=== PATIENT | male | born 1945 | race Caucasian/White ===

== ENCOUNTER 2021-05-16 06:01 | Outpatient (CLI) | payer MEDICARE, BC, SELFPAY ==
--- NOTE | 2021-05-16 07:06 | ECHOD_ITS ---
Reason For Study: AFIB/FLUTTER Procedure This was a 2D Doppler, Color Flow transthoracic echocardiogram. The study was technically difficult. Exam performed in department. Left Ventricle Normal LV size. Left ventricular systolic function is normal. The estimated ejection fraction is 65 %. Diastolic function is indeterminate. No regional wall motion abnormalities noted. Right Ventricle Normal RV size. Normal systolic function. Atria Normal left atrium. Normal right atrium. No doppler evidence for ASD. Mitral Valve There is no mitral annular calcification. Mild diffuse mitral valve thickening. Mild mitral valve prolapse. Trivial mitral valve insufficiency. Tricuspid Valve Normal tricuspid valve. Trivial tricuspid valve insufficiency. Right ventricular systolic pressure estimated to be 35 mmHg. Aortic Valve Trisinus/trileaflet aortic valve. Mild diffuse aortic valve thickening. Mild focal aortic valve calcification. Aortic sclerosis, no stenosis. Trivial aortic valve insufficiency. Pulmonic Valve The pulmonic valve is not well visualized. Mild (1+) pulmonic valve insufficiency. Great Vessels Normal sized aortic root. Pericardium/Pleural No pericardial effusion. MMode/2D Measurements & Calculations LVIDd: 4.1 cm IVSd: 1.1 cm Ao root diam: 3.1 cm LVIDs: 2.6 cm LVPWd: 1.1 cm RVDd: 3.3 cm FS: 38.0 % LAV(MOD-bp): 63.3 ml LA A4 area: 20.1 cm2 LA dimension(2D): 4.0 cm LAV(MOD-bp) Indexed: 32.4 ml/m2 LAV(MOD-sp2): 68.0 ml LAV(MOD-sp4): 58.0 ml RA A4 area: 20.3 cm2 Time Measurements MV dec time: 0.16 sec Doppler Measurements & Calculations MV E max tripp: 81.7 cm/sec Lat Peak E' Tripp: 6.8 cm/sec Med Peak E' Tripp: 6.8 cm/sec MV A max tripp: 70.8 cm/sec E/E' lat: 12.1 E/E' med: 11.9 MV E/A: 1.2 Ao V2 max: 128.3 cm/sec LV V1 max: 101.6 cm/sec PA V2 max: 188.6 cm/sec Ao max P.6 mmHg LV V1 max P.1 mmHg TR max tripp: 283.2 cm/sec TR max P.1 mmHg ECHO/Echo Complete Interpretation Summary The study was technically difficult. Left ventricular systolic function is normal. The estimated ejection fraction is 65 %. Mild diffuse mitral valve thickening. Mild mitral valve prolapse. Trivial mitral valve insufficiency. Trivial tricuspid valve insufficiency. Aortic sclerosis, no stenosis. Trivial aortic valve insufficiency. Mild (1+) pulmonic valve insufficiency. Right ventricular systolic pressure estimated to be 35 mmHg. Diastolic function is indeterminate. Ordering Physician: Alexander Conte Referring Physician: Nathaniel Escalante Performed By: Rhona Dominguez, HAILE, RVT
--- NOTE | 2021-05-16 19:29 | STRESSREP_ITS ---
Stress Test Report Date: 05-16-2021 Procedure: Exercise tolerance test/imaging study Indications: Fatigue, atrial flutter, status post EPS/RFA Consent: Per the patient Procedure: The patient exercised on a Charlie protocol for 9 minutes completing Stage III achieving a peak heart rate of 148 bpm (102% predicted maximal heart rate) with a peak blood pressure 212/82 mmHg and a peak MET capacity of 10 METs. The baseline ECG demonstrated sinus rhythm. The peak exercise ECG demonstrated approximately 0.5 to 1.[address] segment depression in leads II, III, aVF, and approximately [address] segment depression in lead V4 through V6 with subsequent resolution towards baseline in recovery. There was a rare PVC during exercise. The functional capacity was considered good. There was no complaint of chest discomfort during exercise or recovery. The examination was discontinued secondary to dyspnea. Impression: 1. Technically adequate (percent predicted maximal heart rate greater than 85%) exercise tolerance test 2. Peak exercise ECG with approximately 0.5 to 1.[address] segment depression in leads II, 3, aVF, and approximately [address] segment depression in leads V4 through V6 with subsequent resolution towards baseline in recovery 3. There were no cardiac dysrhythmias pretest, during exercise, or recovery 4. Nuclear images pending Myocardial perfusion imaging study: Technique: The patient was injected with 11.1 mCi of technetium 99m Cardiolite and subsequently rest SPECT Cardiolite nuclear imaging was obtained in the horizontal long, vertical long, and short axis views. The patient exercised on a Charlie protocol for 9 minutes completing Stage III achieving a peak heart rate of 148 bpm (102% predicted maximal heart rate) with a peak blood pressure 212/82 mmHg and a peak MET capacity of 10 METs. The patient was injected with 33.3 mCi of technetium 99m Cardiolite and subsequently stress SPECT Cardiolite nuclear imaging was obtained in the horizontal long, vertical long, and short axis views. A gated Cardiolite study at peak stress was obtained. Interpretation: Rest and stress SPECT Cardiolite nuclear imaging status post realignment, normalization, and attenuation correction, demonstrates the appearance of relative uniform tracer uptake and myocardial perfusion appearing within normal limits. There is end systolic thickening and brightening. The gated Cardiolite study demonstrates myocardial thickening and inward wall motion. The reported LVEF is 64%. Impression: 1. Rest and stress SPECT Cardiolite nuclear imaging demonstrate relative uniform tracer uptake and myocardial perfusion appearing within normal limits. 2. The gated Cardiolite study reports an LVEF of 64%. This note was generated with [email or web address] software. It may contain incorrect words, spelling, and punctuation that were not noted in checking the note before signing.
== END 2021-05-16 23:59 | disposition home or self-care (01) ==
LOC: CVS 06:04
PROVIDERS: PCP Family Medicine Geriatric Medicine; Referring Provider Internal Medicine Cardiovascular Disease; Visit Provider Internal Medicine Cardiovascular Disease
DX: I48.92 Unspecified atrial flutter (principal); R53.83 Other fatigue; E78.00 Pure hypercholesterolemia, unspecified; I10 Essential (primary) hypertension; Z79.899 Other long term (current) drug therapy; R06.00 Dyspnea, unspecified
CPT/HCPCS: 78452; 93017; 93306; A9500; A4216

== ENCOUNTER → 2021-10-31 | Outpatient (CLI) | payer MEDICARE, BC, SELFPAY ==
[2021-10-31 12:40] LABS: Erythrocyte Sedimentation Rate 6 mm/hr (0-20)
[2021-10-31 12:46] LABS: Absolute Lymphocyte Count 1.34 X10^3/uL (0.83-4.51); Absolute Neutrophil Count 4.9 X10^3/uL (2.0-7.7); Basophil# 0.04 X10^3/uL; Basophil% 0.6 % (0-1); Eosinophil# 0.18 X10^3/uL; Eosinophils% 2.5 % (0-5); Hematocrit 51.1 % (40-54); Hemoglobin 16.5 g/dL (13.0-16.5); Lymphocyte # 1.34 X10^3/ul (0.83-4.51); Lymphocyte % 18.9 % (19-41); Mean Corp Hgb Conc 32.3 g/dL (32-36); Mean Corpuscular Hgb 28.3 pg (27.0-32.0); Mean Corpuscular Volume 87.7 fL (80-94); Mean Platelet Vol. 10.6 fl (6.2-12.0); Monocyte# 0.57 X10^3/uL; NRBC Flagged by Analyzer 0 % (0-5); Neutrophil # 4.94 X10^3/uL (2.7-7.7); Neutrophil % 69.6 % (47-70); Platelet Count 124 K/mm3 (150-450); RBC Distribution Width CV 14.1 % (11.6-14.6); RBC Distribution Width SD 44.9 fl (35.1-43.9); Red Blood Count 5.83 M/mm3 (4.6-6.2); White Blood Count 7.1 K/mm3 (4.4-11.0)
[2021-10-31 13:05] LABS: AST(SGOT) 29 U/L (15-37); Alanine Aminotransfer ALT/SGPT 39 U/L (16-61); Albumin, Serum 3.6 g/dL (3.2-5.0); Alkaline Phosphatase 62 U/L (45-117); Anion Gap 3 (5-15); BUN 23 mg/dL (7-18); Bilirubin, Direct 0.19 mg/dL (0.00-0.30); Chloride 108 mmol/L (98-107); Creatinine, Serum 1.02 mg/dL (0.70-1.30); EST Glomerular Filtration Rate 75 mL/min (>60); Est Glom Filt Rate - Afr Amer 91 mL/min (>60); Globulin 3.2 g/dL (2.2-4.2); Glucose 89 mg/dL (74-106); Potassium 4.7 mmol/L (3.5-5.1); Protein, Total 6.8 g/dL (6.4-8.2); Sodium Level 142 mmol/L (136-145)
[2021-11-03 17:29] LABS: C1 Esterase Inhibitor, Quant 28 mg/dL (21-39)
== END | disposition home or self-care (01) ==
LOC: LAB 11:48
PROVIDERS: PCP Family Medicine Geriatric Medicine; Referring Provider Nurse Practitioner; Visit Provider Nurse Practitioner
DX: T78.3XXD Angioneurotic edema, subsequent encounter (principal)
CPT/HCPCS: 36415; 80051; 80076; 82565; 82947; 84520; 84550; 85025; 85652; 86160

== ENCOUNTER → 2021-11-10 | Outpatient (CLI) | payer MEDICARE, BC, SELFPAY ==
[2021-11-10 08:57] LABS: AST(SGOT) 26 U/L (15-37); Alanine Aminotransfer ALT/SGPT 37 U/L (16-61); Albumin, Serum 3.6 g/dL (3.2-5.0); Alkaline Phosphatase 60 U/L (45-117); Bilirubin, Direct 0.15 mg/dL (0.00-0.30); Cholesterol 155 mg/dL (200); Globulin 3.1 g/dL (2.2-4.2); High Density Lipoprotein 42 mg/dL; Protein, Total 6.7 g/dL (6.4-8.2); Triglycerides 109 mg/dL; Very Low Density Lipoprotein 22 mg/dL (5-40)
== END | disposition home or self-care (01) ==
LOC: LAB 08:01
PROVIDERS: PCP Family Medicine Geriatric Medicine; Referring Provider Internal Medicine Cardiovascular Disease; Visit Provider Internal Medicine Cardiovascular Disease
DX: I48.92 Unspecified atrial flutter (principal); E78.00 Pure hypercholesterolemia, unspecified
CPT/HCPCS: 36415; 80061; 80076

== ENCOUNTER → 2023-11-14 | Outpatient (CLI) | payer MEDICARE, SELFPAY ==
--- NOTE | 2023-11-14 12:49 | ECHOD_ITS ---
Reason For Study: MITRAL VALVE PROLAPSE Procedure This was a 2D Doppler, Color Flow transthoracic echocardiogram. Exam performed in department. Left Ventricle Normal LV size. Left ventricular systolic function is normal. The left ventricular ejection fraction is 65 %. No regional wall motion abnormalities noted. Right Ventricle Normal RV size. Normal systolic function. Atria Normal left atrium. Normal right atrium. Mitral Valve Normal mitral valve. Tricuspid Valve Normal tricuspid valve. Mild (1+) tricuspid valve insufficiency. Pulmonary artery systolic pressure is 36 mmHg. Aortic Valve Trisinus/trileaflet aortic valve. Mild focal aortic valve calcification. Pulmonic Valve Normal pulmonic valve. Great Vessels Normal aortic root. The pulmonary artery is normal size. Normal inferior vena cava. Pericardium/Pleural No pericardial effusion. MMode/2D Measurements & Calculations LVIDd: 4.3 cm IVSd: 1.4 cm LVOT diam: 2.0 cm LVIDs: 2.1 cm LVPWd: 0.98 cm LVOT area: 3.1 cm2 RVDd: 3.7 cm FS: 49.9 % asc Aorta Diam: 3.3 cm LAV(MOD-bp): 58.2 ml LVAd ap4: 24.3 cm2 LAV(MOD-bp) Indexed: 30.5 ml/m2 LVLd ap4: 7.6 cm LAV(MOD-sp2): 67.5 ml EDV(MOD-sp4): 63.6 ml LAV(MOD-sp4): 47.5 ml EDV(sp4-el): 65.7 ml LVAs ap4: 12.1 cm2 LVLs ap4: 5.8 cm ESV(MOD-sp4): 22.5 ml ESV(sp4-el): 21.3 ml EF(MOD-sp4): 64.6 % EF(sp4-el): 67.6 % LVAd ap2: 23.2 cm2 SV(MOD-sp4): 41.1 ml SV(MOD-sp2): 41.4 ml LVLd ap2: 7.6 cm EDV(MOD-sp2): 61.1 ml EDV(sp2-el): 60.2 ml LVAs ap2: 11.3 cm2 LVLs ap2: 5.4 cm ESV(MOD-sp2): 19.7 ml ESV(sp2-el): 19.9 ml EF(MOD-sp2): 67.7 % SV(sp4-el): 44.4 ml Ao sinus diam: 3.[address] Junction: 3.0 cm LA dimension(2D): 4.0 cm LA A4 area: 18.4 cm2 RA A4 area: 14.2 cm2 TAPSE: 2.2 cm Time Measurements MV dec time: 0.23 sec Doppler Measurements & Calculations MV E max tripp: 83.9 cm/sec Lat Peak E' Tripp: 9.5 cm/sec Med Peak E' Tripp: 7.6 cm/sec MV A max tripp: 65.6 cm/sec E/E' lat: 8.8 E/E' med: 11.1 MV E/A: 1.3 MV dec slope: 358.8 cm/sec2 Ao V2 max: 161.3 cm/sec LV V1 max: 98.7 cm/sec Ao max P.4 mmHg LV V1 max P.9 mmHg Ao V2 mean: 112.7 cm/sec LV V1 mean P.1 mmHg Ao mean P.6 mmHg LV V1 mean: 66.3 cm/sec Ao V2 VTI: 34.7 cm LV V1 VTI: 16.4 cm AV (velocity ratio): 0.47 MARIANELA(I,D): 1.5 cm2 MARIANELA(V,D): 1.9 cm2 SV(LVOT): 51.2 ml PA V2 max: 150.0 cm/sec PI end-d tripp: 91.3 cm/sec PA max PG (full): 7.5 mmHg TR max tripp: 286.6 cm/sec TR max P.9 mmHg ECHO/Echo Complete Interpretation Summary Normal LV size. Left ventricular systolic function is normal. The left ventricular ejection fraction is 65 %. Mild focal aortic valve calcification. Ordering Physician: Bettina Allen Referring Physician: Bettina Allen Performed By: Nataliia Cardoso RDCS
== END | disposition home or self-care (01) ==
PROVIDERS: PCP Family Medicine Geriatric Medicine; Referring Provider Physician Assistant Medical; Visit Provider Physician Assistant Medical
DX: I34.1 Nonrheumatic mitral (valve) prolapse (principal)
CPT/HCPCS: 93306

== ENCOUNTER 2024-10-21 09:30 | Outpatient (RCR) | payer MEDICARE, SELFPAY ==
--- NOTE | 2024-09-23 09:06 | HP.PTEVAL_ITS ---
Patient's Visit Information Visit Information Visit Information: GABRIELLE CARDOZA is a 79 year old M referred to Physical Therapy by Dr. Nova Ring DPM with a diagnosis of R Achilles tendon rupture. Date of Evaluation: 09/23/24 Physical Therapist: Jorge Burt DPT Visit Plan Frequency: 1x/Week Duration: 6 Weeks Plan: 1) seated and standing G/S complex strengthening 2) SLS progressing to 30"+ 3) progressive walking program. Subjective Subjective: Pt. is here today for his initial evaluation with diagnosis of R Achilles tendon rupture. Pt. reports having inquired his leg ~1.5 years ago. Pt. repors stepping a storm drain and feeling Achilles tear. He had a lot going on and was unable to attend to it. Pt. reports overall doing well, but does feel some instability when walking occasionally. No falls noted. Pt. used to walk his dog a lot, but has held on that and is not walking much currently (recreationally). Pt. is still able to complete all ADls without issues. Main issue is he feels a little "clumsy" at times. Objective Objective: POSTURE: Pt. has normal posture in stance. SLight flexed posture and slightly wide ELA. PALPATION: Pt. has no pain with palpation of BLEs, no pain at achilles. NEURO: normal DTR of BLEs. ROM: Pt. has good DF bilaterally, slight increase in R side compared to L side. MMT: R ankle: PF 31.5#, PF 29.2#, EVR 26.0#, INV 21.8# L ankle: PF 40.5#, PF 33.1#, EVR 31.6#, INV 26.9# Single leg heel raise x10 on L side no issues. Pt. is unable to complete on R side. GAIT: PT. ambulates with limited to no push off during end of R stance phase. Rest is normal. STAIRS: normal without use of HR. SL balance: L LE 30" without issues. RLE 6" prior to needing to hold onto balance aide. Balance/Special Test Scores Lower Extremity Functional Score: 78 Goals Goal 1:: LTG: Pt. to be I with HEP. Goal Time Frame: 4-6 Weeks Goal 2:: LTG: Pt. to complete SL heel raise on RLE x10. Goal Time Frame: 4-6 Weeks Goal 3:: LTG: Pt. to ambulate with normal gait pattern with improved push off during end of stance phase/pre swing. Goal Time Frame: 4-6 Weeks Goal 4:: LTG: Pt. to be able to stand on RLE in SLS x30" without LOB. Goal Time Frame: 4-6 Weeks Rehabilitation Potential Physical Therapy Diagnosis: Pt. has signs and symptoms consistent with R Achilles tendon rupture. Pt. has marked PF weakness and difficulty walking. He has marked atrophy of G/S complex and would benefit from PT address the above limitations. Rehabilitation Potential: Fair Anticipated Interventions Patient/Client Instruction: Educate patient on: Condition, Plan of Care, Risk Factors and Benefits of Fitness Program For the Purpose of:: To facilitate caregiver knowledge, To improve self management, To prevent re-injury, To improve ability to perform tasks related to life management and To improve tolerance to ADL's Therapeutic Exercise to Include: Strength training, Power training, Balance training, Coordination, Passive ROM and Active ROM For the Purpose of:: To decrease pain, To increase ROM, To improve nutrient de livery to tissue, To increase oxygenation perfusion and To improve muscle performance and motor function Text: Thank you for the opportunity to evaluate your patient. For Medicare and Medicare HMO plans, please review the plan of care and approve it. It will need to be FAXED BACK to us at [phone] for Medicare purposes. For Medicare only, by signing this I certify the plan of care. Please let me know if there are questions or concerns regarding this plan of care. Physician Signature: Date:
== END 2024-10-21 19:00 | disposition home or self-care (01) ==
LOC: PT 09:30
PROVIDERS: PCP Family Medicine Geriatric Medicine; Referring Provider Podiatrist; Visit Provider Podiatrist
DX: S86.091D Other specified injury of right Achilles tendon, subsequent encounter (principal); R26.9 Unspecified abnormalities of gait and mobility
CPT/HCPCS: 97110; 97161